=== PATIENT | female | born 2000 | race African-American/Black ===

== ENCOUNTER 2024-05-15 15:22 | Emergency (ER) | payer OTHER ==
[~2024-05-15] VITALS: Ht 175.3 cm; Wt 75.3 kg
[2024-05-15 15:46] VITALS: BP 114/65; TEMP 99.4
[2024-05-15] MEDS ORDERED: GUAI1TBM19 PO (16:28)
[2024-05-15 16:48] VITALS: O2SAT 99
== END 2024-05-15 16:48 | disposition home or self-care (01) ==
LOC: ER 15:22
DX: J45.901 Unspecified asthma with (acute) exacerbation (principal); R50.9 Fever, unspecified; R09.81 Nasal congestion; Z88.5 Allergy status to narcotic agent; Z20.822 Contact with and (suspected) exposure to COVID-19